=== PATIENT | male | born 1985 | race Caucasian/White ===

== ENCOUNTER 2017-11-06 22:00 | Emergency (ER) | payer OTHER ==
[2017-11-06 22:28] VITALS: BP 114/68
[2017-11-06] MEDS ORDERED: CEFTRIAXONE INJ 1000 MG VIAL IM ONE (23:10)
[2017-11-06] MEDS ORDERED: LIDOCAINE 1% INJ-PF (10 MG/ML) 30 ML SDV INJ ONE (23:10)
[2017-11-06] MEDS ORDERED: SULFAMETHOXAZOLE/TRIMETHOPRIM 800-160 MG TABLET PO ONE (23:10)
[2017-11-06] MEDS ORDERED: IBUPROFEN 800 MG TABLET PO ONE (23:11)
--- NOTE | 2017-11-06 23:34 | ER Document Report ---
HPI - HPI Patient complains to provider of: abscess Onset: Other - 3 days Onset/Duration: Worse Quality of pain: Achy Pain Level: 3 Context: Patient presents complaining of abscess to left forearm that started 3 days ago. Patient states he had a similar skin lesion to the right hand one month ago. Patient is concerned it may be a spider bite although he did not actually see the spider bite him. Patient denies any history of MRSA. Associated Symptoms: Other - Abscess. denies: Fever Exacerbated by: Movement Relieved by: Denies Similar symptoms previously: Yes Recently seen / treated by doctor: No - ROS ROS below otherwise negative: Yes Systems Reviewed and Negative: Yes All other systems reviewed and negative - CONSTITUTIONAL Constitutional: DENIES: Fever - MUSCULOSKELETAL Musculoskeletal: REPORTS: Extremity pain, Swelling - DERM Skin Color: Erythema Notes: Abscess Past Medical History - General Information source: Patient - Social History Smoking Status: Current Every Day Smoker Smoking Education Provided: Yes Frequency of alcohol use: None Drug Abuse: None Occupation: certified medical technician assistant Family History: Reviewed & Not Pertinent - Medical History Medical History: Negative Surgical Hx: Negative Vertical Provider Document - CONSTITUTIONAL Agree With Documented VS: Yes Exam Limitations: No Limitations General Appearance: WD/WN, No Apparent Distress - INFECTION CONTROL TRAVEL OUTSIDE OF THE [place] IN LAST 30 DAYS: No - HEENT HEENT: Atraumatic, Normocephalic - NECK Neck: Normal Inspection, Supple - RESPIRATORY Respiratory: Breath Sounds Normal, No Respiratory Distress - CARDIOVASCULAR Cardiovascular: Regular Rate, Regular Rhythm Pulses: Normal: Radial - MUSCULOSKELETAL/EXTREMETIES Musculoskeletal/Extremeties: MAEW, FROM - NEURO Level of Consciousness: Awake, Alert, Appropriate Motor/Sensory: No Motor Deficit - DERM Integumentary: Warm, Dry, Abscess - Abscess noted to the volar aspect of left forearm with some surrounding erythema and mild streaking up the proximal forearm. No noted track elizalde Course - Vital Signs Vital signs: Temp Pulse Resp BP Pulse Ox 99.2 F 64 16 114/68 98 11/06/17 22:26 11/06/17 22:26 11/06/17 22:26 11/06/17 22:26 11/06/17 22:26 Procedures - Incision and Drainage Left Arm Type: Simple Anesthetic type: 1% Lidocaine Blade size: 11 I&D procedure: Betadine prep applied Incision Method: Incision made by scalpel Amount/type of drainage: mod amount of purulent drainage Adult Front & Back picture: 1 - abscess Discharge - Discharge Clinical Impression: Abscess of forearm, left Cellulitis Qualifiers: Site of cellulitis: extremity Site of cellulitis of extremity: upper extremity Laterality: left Qualified Code(s): L03.114 - Cellulitis of left upper limb Condition: Stable Disposition: HOME, SELF-CARE Instructions: Abscess ([facility]), Cephalexin ([facility]), Oral Narcotic Medication ([facility]), Post Incision and Drainage, Trimethoprim-Sulfa ([facility]) Additional Instructions: Return immediately for any new or worsening symptoms Followup with your primary care provider, call tomorrow to make a followup appointment Wound culture is pending, we will call if you need any different treatment Prescriptions: Cephalexin Monohydrate [Keflex 500 mg Capsule] 500 mg PO Q6H 7 Days capsule Mupirocin [Bactroban 2% Ointment 22 gm] 1 applic TP TID #22 gm Naproxen [Naprosyn 250 Nmg Tablet] 1 tab PO BID #14 tablet Sulfamethoxazole/Trimethoprim [Bactrim Ds Tablet] 1 each PO BID #20 tablet Forms: Smoking Cessation Education, Return to Work Referrals: [facility] [Provider Group] - Follow up as needed
[2017-11-07] MEDS ORDERED: HYDROCODONE/ACETAMINOPHEN 5-325 MG (6 TAB/ER DISP) PO PRN (00:02)
== END 2017-11-07 01:00 | disposition home or self-care (01) ==
LOC: ER 22:00
DX: L02.414 Cutaneous abscess of left upper limb (principal); L03.114 Cellulitis of left upper limb; F17.200 Nicotine dependence, unspecified, uncomplicated
CPT/HCPCS: 99283; 96372; 87070; 87205; 87075; 87077; 87186; 10060; J3490; J0696